=== PATIENT | female | born 1980 | race African-American/Black ===

== ENCOUNTER 2024-01-03 10:36 | Observation (INO) ==
[2024-01-03] MEDS ORDERED: oxyCODONE SR 10 mg TAB ONE (11:13)
[2024-01-03] MEDS ORDERED: Ondansetron 4 mg VIAL 2 MG/ML 2 ml VIAL ONE (11:14)
[2024-01-03] MEDS ORDERED: Scopolamine 1 mg/72hr PATCH ONE (11:14)
[2024-01-03] MEDS: oxyCODONE SR 10 mg TAB PO ONE (11:30)
[2024-01-03] MEDS: NS 0.9% 1000 ml BAG 500 ML IV ONE (11:30)
[2024-01-03] MEDS: Ondansetron 4 mg VIAL 2 MG/ML 2 ml VIAL IV ONE (11:30)
[2024-01-03] MEDS ORDERED: Midazolam 5 mg/5 ml VIAL 1 mg/ml 5 ml VIAL (5 mg) ONE (11:35)
[2024-01-03] MEDS ORDERED: fentaNYL 250 mcg/5 ml 50 MCG/ML 5 ml VIAL (250 MCG) ONE ×2 (11:35→13:01)
[2024-01-03] MEDS: Scopolamine 1 mg/72hr PATCH TRANSDERM ONE (11:40)
[2024-01-03 12:07] LABS: ABS Basophils 0.1 10^3/uL (0.0-0.1); ABS Eosinophils 0.1 10^3/uL (0.0-0.5); ABS Lymphocytes 4.3 10^3/uL (1.0-4.8); ABS Monocytes 0.4 10^3/uL (0.0-0.9); ABS Neutrophils 4.3 10^3/uL (1.5-7.6); ABS Nucleated RBC 0.03 10^3/ul; Eosinophil % 0.8 %; Hematocrit 43.1 % (35-45); Hemoglobin 14.7 g/dL (11.5-14.3); Lymphocyte % 46.8 %; Mean Corpuscular Hemoglobin 28.8 pg (27-33); Mean Corpuscular Hgb Conc 34.1 g/dL (31-36); Mean Corpuscular Volume 84.5 fL (80-97); Mean Platelet Volume 9.4 fL (7.5-11.2); Nucleated Red Blood Cells % 0.3 %/100WBC (0.0-0.8); Platelet Count 251 10^3/uL (150-450); Red Cell Distribution Width 13.1 % (12-17); White Blood Count 9.2 10^3/uL (3.8-11.8)
[2024-01-03] MEDS: Clindamycin 900 MG/50 **NS BAG 900 MG/50 ML BAG IV ONE (12:15)
[2024-01-03 12:19] LABS: Activated Partial Thrombo Time 29.5 seconds (26.0-38.0); INR 0.94 (0.83-1.13)
[2024-01-03] MEDS ORDERED: nitroGLYCERIN DRIP 25,000 MCG/250 ML BTL ONE (12:35)
[2024-01-03] MEDS ORDERED: Heparin 2 UNITS/ML IVPREMIX 3,000 UNIT/1,500 ML BAG IV ONE (12:35)
[2024-01-03] MEDS ORDERED: Lidocaine 1% VIAL 10 MG/ML 30 ML VIAL ONE (12:39)
[2024-01-03] MEDS ORDERED: Iohexol 350 (CONTRAST) 100 ML PAK IV ONE ×2 (12:44→13:33)
[2024-01-03 12:48] LABS: Calcium 9.4 mg/dL (8.6-10.3); Creatinine, Serum 0.71 mg/dL (0.51-0.95); Potassium 4.3 mmol/L (3.5-5.0); eGFR CKD-EPI 106.8 (>60)
[2024-01-03 13:31] LABS: HCG Pregnancy 3.04 mIU/mL
[2024-01-03] MEDS ORDERED: Naloxone 0.4 mg VIAL 0.4 mg/ml 1 ml VIAL IV PUSH PRN ×2 (13:52→14:49)
[2024-01-03] MEDS ORDERED: HYDROmorphone 0.5 MG/0.5 ML SYRINGE ONE (13:52)
[2024-01-03] MEDS ORDERED: Prochlorperazine 5 mg/ml 2 ml VIAL (10 mg) ONE (13:55)
[2024-01-03] MEDS ORDERED: Prochlorperazine 5 mg/ml 2 ml VIAL (10 mg) IV PRN (14:36)
[2024-01-03] MEDS ORDERED: Flumazenil 0.5 mg/5 ml 0.1 MG/ML 5 ml VIAL IV PRN (14:49)
[2024-01-03] MEDS ORDERED: HYDROmorphone 1 MG/1 ML SYRINGE ONE (14:52)
[2024-01-03] MEDS: HYDROmorphone 1 MG/1 ML SYRINGE IV SLOW PU ONE (14:53)
[2024-01-03] MEDS: NS 0.9% 1,000 ML IV SCH (15:01)
[2024-01-03] MEDS: HYDROmorphone PCA 20 MG/20 ML PCA.SYRING PCA SCH (15:02)
[2024-01-03] MEDS ORDERED: Labetalol IV 5 MG/ML 20 ml VIAL IV PUSH PRN (15:55)
[2024-01-03] MEDS: Midazolam 10 mg/10 ml VIAL 1 mg/ml 10 ml VIAL (10 mg) IV SLOW PU ONE (15:55)
[2024-01-03] MEDS: fentaNYL 100 mcg/2 ml 50 MCG/ML VIAL IV SLOW PU ONE (15:55)
[2024-01-03] MEDS: Ondansetron 4 mg VIAL 2 MG/ML 2 ml VIAL IV SCH (19:49)
[2024-01-03] MEDS: Magnesium Hydroxide LIQ 30 ML UDC PO PRN (21:58)
[2024-01-04] MEDS: hydrALAZINE 20 mg/ml 1 ML Vial IV IV SLOW PU PRN (00:56)
[2024-01-04] MEDS ORDERED: HYDROcodone/ACETAMIN 5/325 mg TAB PO PRN (09:22)
[2024-01-04] MEDS: Ketorolac 10 mg TAB (NF) PO SCH (10:21)
[2024-01-04] MEDS: Scopolamine 1 mg/72hr PATCH TRANSDERM SCH (11:18)
[2024-01-04] MEDS ORDERED: Ketorolac 10 mg TAB (NF) PO SCH ×2 (14:00)
== END 2024-01-04 11:34 | disposition home or self-care (01) ==
LOC: SSU 10:36 → CHICATH 10:36
PROVIDERS: ADMIT Radiology Diagnostic Radiology; ATTEND Internal Medicine
PROC: ANG.UFE (2024-01-03 12:15)